=== PATIENT | female | born 1965 | race Caucasian/White ===

== ENCOUNTER 2020-05-23 13:28 | Outpatient (REF) | payer OTHER, SELFPAY ==
--- NOTE | 2020-05-23 | MM_ITS ---
EXAMINATION: MM SCREENING DIGITAL BREAST TOMOSYNTHESIS, BILATERAL CLINICAL INFORMATION: Screening. Asymptomatic. The lifetime risk of breast cancer based on the Tyrer-Cuzick Model is 6%. COMPARISON: Mammography: 12/30/2018, 12/16/2017, 12/03/2016 TECHNIQUE: Digital breast tomosynthesis is performed in both the craniocaudal and mediolateral oblique views along with computer-aided detection (CAD). Synthesized 2D images are generated from the tomosynthesis. FINDINGS: There are scattered areas of fibroglandular density (ACR BI-RADS breast composition Category b). There are no significant masses, abnormal calcifications, or other abnormalities. Parenchymal pattern is similar to prior studies. There is no developing density. No significant changes. MM/MM tomosynthesis screening BI IMPRESSION: No significant changes from prior exams. ASSESSMENT: BI-RADS 1: Negative RECOMMENDATION: Routine annual mammography screening. This patient's information was entered into a reminder system with a target due date for their next mammogram.
== END 2020-05-23 13:29 | disposition home or self-care (01) ==
LOC: HO.MAMMO 13:28
PROVIDERS: PCP Nurse Practitioner Family; Visit Provider Nurse Practitioner Family
DX: Z12.31 Encounter for screening mammogram for malignant neoplasm of breast (principal)
CPT/HCPCS: 77063; 77067

== ENCOUNTER 2020-05-30 13:34 | Outpatient (REF) | payer OTHER, SELFPAY | END 2020-05-30 13:35 | disposition home or self-care (01) | LOC: HO.LAB 13:34 | PROVIDERS: Visit Provider Nurse Practitioner Family | DX: Z20.828 Contact with and (suspected) exposure to other viral communicable diseases (principal) | CPT/HCPCS: U0003 ==

== ENCOUNTER 2020-07-26 10:58 | Outpatient (REF) | payer OTHER, SELFPAY | END 2020-07-26 10:59 | disposition home or self-care (01) | LOC: HO.LAB 10:58 | PROVIDERS: Visit Provider Internal Medicine | DX: Z20.828 Contact with and (suspected) exposure to other viral communicable diseases (principal) | CPT/HCPCS: C9803; U0003 ==

== ENCOUNTER 2020-08-14 08:38 | Outpatient (REF) | payer OTHER, SELFPAY ==
--- NOTE | 2020-08-14 08:43 | XR_ITS ---
EXAMINATION: XR CHEST CLINICAL INFORMATION: Coronal virus infection COMPARISON: Previous chest x-ray most recent January 2020 TECHNIQUE: 2 views of the chest were obtained. FINDINGS: The cardiac and mediastinal contours are normal. The lungs are clear. There is no pleural effusion or pneumothorax. There are degenerative changes of the thoracic spine. Bony structures are otherwise unremarkable. XR/XR chest 2V IMPRESSION: Unremarkable examination.
== END 2020-08-14 08:39 | disposition home or self-care (01) ==
LOC: HO.XRAY 08:38
PROVIDERS: PCP Nurse Practitioner Family; Visit Provider Nurse Practitioner Family
DX: U07.1 COVID-19 (principal)
CPT/HCPCS: 71046